=== PATIENT | male | born 1970 | race Hispanic/Latino ===

== ENCOUNTER → 2019-01-13 | Outpatient (CLI) | payer OTHER ==
--- NOTE | 2019-01-13 15:25 | Diagnostic Imaging Report ---
Exam: Sacrococcyx 2 views History: Pain Comparison: None. Findings: Age-indeterminate posterior displacement of the inferior portion of the coccyx. Otherwise unremarkable. Lower lumbar disc spaces maintained. Lower lumbar facet arthrosis. Impression: Age-indeterminate posterior displacement of the inferior portion of the coccyx Signed by: Dr. Mazin Olson M.D. on 01/13/2019 3:22 PM
== END ==
LOC: RAD 14:19
PROVIDERS: ATTEND Internal Medicine
DX: S33 Dislocation and sprain of joints and ligaments of lumbar spine and pelvis (principal); S32.050G Wedge compression fracture of fifth lumbar vertebra, subsequent encounter for fracture with delayed healing; I20.9 Angina pectoris, unspecified
CPT/HCPCS: 72220

== ENCOUNTER 2020-05-31 13:25 | Emergency (ER) | payer OTHER ==
[~2020-05-31] VITALS: Ht 172.7 cm; Wt 86.2 kg
[2020-05-31] MEDS ORDERED: IBUPROFEN 400 MG TAB PO ONE (14:15)
--- OUTSIDE RECORDS SUMMARY | 2020-05-31 14:29 | XMS REPORT | Clinical Summary ---
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 Last Filed Vital Signs Not on file Plan of Treatment Health Maintenance Due Date Last Done Comments INFLUENZA VACCINE 07/04/2020 Results Not on fileafter 05/31/2019 Insurance Type Payer Benefit Subscriber ID Effective Phone Address Plan / Dates Group Workers Comp WORKERS COMP MISC xxxxxxx 2017- WORKER'S Present COMP Guarantor Name Account Relation to Date of Phone Hugoin g Address Type Patient [id number] Workers Employer 1970 [address] (Home) [place] [address] Waldo Hernandez Personal/F Self 1970 [address] ([place]) [place] [address] Advance Directives For more information, please contact: [phone] 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
--- OUTSIDE RECORDS SUMMARY | 2020-05-31 14:29 | XMS REPORT | Continuity of Care Document ---
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 Attphys Unavailable JUAN DANIEL HARP M.D. Attphys Unavailable Payers Payer Name Policy Type Policy Number Effective Date Expiration Date S ource Problems Condition Name Condition Details Condition Category Status Onset Date Resolution Date Last Treatment Date Treating Clinician Comments Source History of arthritis History of arthritis Problem HL7.CCDAR2 Resolved [facility] Deviated nasal septum Deviated nasal septum Problem HL7.CCDAR2 Active [facility] External nose deformity External nose deformity Problem HL7.CCDAR2 Activ e [facility] Nasal valve stenosis Nasal valve stenosis Problem HL7.CCDAR2 Active [facility] Closed fracture of nasal bone, initial encounter Close d fracture of nasal bone, initial encounter Problem HL7.CCDAR2 Active [facility] Allergies, Adverse Reactions, Alerts Allergy Name Allergy Type Status Severity Reaction(s) Onset Date Inacti ve Date Treating Clinician Comments Source No Known Allergies DA Active U 2017-06-22 00:00:00 [facility] Family History Family Member Diagnosis Comments Start Date Stop Date Source Unknown Family Member Family history of malignant neoplasm Family His laura [facility] Natural father Cancer [facility] Natural mother Diabetes [facility] Social History Social Habit Start Date Stop Date Quantity Comments Source Sex Assigned At Adele ston Judaism Smoking Status Start Date Stop Date Source Never smoker [facility] Medications This patient has no known medications. Vital Signs Vital Name Observation Time Observation Value Comments Source BP Systolic 2018-05-09 09:48:00 123 mm[Hg] Location: RUE; Positi on: Sitting [facility] BP Diastolic 2018-05-09 09:48:00 76 mm[Hg] Location: RUE; Positi on: Sitting [facility] Height 2018-05-09 09:48:00 69 [in_us] [facility] Weight 2018-05-09 09:48:00 185 [lb_av] [facility] Body Mass Index Calculated 2018-05-09 09:48:00 27.32 kg/m2 [facility] Temperature 2018-05-09 09:48:00 97 [degF] Method: Oral [facility] Heart Rate 2018-05-09 09:48:00 73 /min Quality: Normal Unive [facility] BP Systolic 2018-02-03 10:08:00 139 mm[Hg] Location: LUE; Positi on: Sitting [facility] BP Diastolic 2018-02-03 10:08:00 78 mm[Hg] Location: LUE; Positi on: Sitting [facility] Height 2018-02-03 10:08:00 69 [in_us] [facility] Weight 2018-02-03 10:08:00 185 [lb_av] [facility] Body Mass Index Calculated 2018-02-03 10:08:00 27.32 kg/m2 [facility] Temperature 2018-02-03 10:08:00 97.3 [degF] Method: Oral [facility] Heart Rate 2018-02-03 10:08:00 83 /min Quality: Normal Unive [facility] BP Systolic 2017-11-04 09:31:00 123 mm[Hg] Location: LUE; Positi on: Sitting [facility] BP Diastolic 2017-11-04 09:31:00 73 mm[Hg] Location: LUE; Positi on: Sitting [facility] Height 2017-11-04 09:31:00 69 [in_us] [facility] Weight 2017-11-04 09:31:00 185 [lb_av] [facility] Body Mass Index Calculated 2017-11-04 09:31:00 27.32 kg/m2 [facility] Heart Rate 2017-11-04 09:31:00 89 /min [facility] BP Systolic 2017-09-20 13:10:00 150 mm[Hg] Location: RUE; Positi on: Sitting [facility] BP Diastolic 2017-09-20 13:10:00 97 mm[Hg] Location: RUE; Positi on: Sitting [facility] Height 2017-09-20 13:10:00 69 [in_us] [facility] Weight 2017-09-20 13:10:00 192 [facility]lb_av[facility] Body Mass Index Calculated 2017-09-20 13:10:00 28.35 kg/m2 [facility] Heart Rate 2017-09-20 13:10:00 72 /min [facility] BP Systolic 2017-08-24 14:40:00 119 mm[Hg] [facility] BP Diastolic 2017-08-24 14:40:00 84 mm[Hg] [facility] Height 2017-08-24 14:40:00 69 [in_us] [facility] Weight 2017-08-24 14:40:00 192.375 [lb_av] [facility] Body Mass Index Calculated 2017-08-24 14:40:00 28.41 kg/m2 [facility] Heart Rate 2017-08-24 14:40:00 98 /min [facility] Procedures Procedure Date / Time Performed Performing Clinician [facility] Planned Activity Planned Date Details Comments Source Future Scheduled Test 2020-07-04 00:00:00 INFLUENZA VACCINE [code = INFLUENZA VACCINE] [facility] Encounters Start Date/Time End Date/Time Encounter Type Admission Type [facility] Facility Care Department Encounter ID Source 2018-05-09 10:00:00 2018-05-09 10:00:00 Appointment; KAYLEY NAVARRETE M.D. HO, TANG, M.D. [facility] Otorhinolaryngology [facility] [id number] [facility] 2018-02-03 09:45:00 2018-02-03 09:45:00 Appointment; KAYLEY NAVARRETE M.D. HO, TANG, M.D. [facility] Otorhinolaryngology [facility] [id number] [facility] 2017-11-04 10:30:00 2017-11-04 10:30:00 Appointment; KAYLEY NAVARRETE M.D. HO, TANG, M.D. [facility] Otorhinolaryngology [facility] [id number] [facility] 2017-09-20 13:15:00 2017-09-20 13:15:00 Appointment; KAYLEY NAVARRETE M.D. HO, TANG, M.D. [facility] Otorhinolaryngology [facility] [id number] [facility] 2017-08-24 14:15:00 2017-08-24 14:15:00 Appointment; JUAN DANIEL HARP M.D. BYRD, MICHAEL, M.D. [facility] [id number] [facility] Results Test Description Test Time Test Comments Results Result Comments Source [facility] 2019-01-13 15:21:00 [place] [address] Patient Name: JENNIFER PATEL MR #: [id number] : 1970 Age/Sex: 48/M Req #: [id number] Adm Physician: Ordered by: VIDAL PAUL MD Report #: [id number] Location: [facility] Room/Bed: Procedure: [id number] DX/[facility] Exam Date: 01/13/19 Exam Time: 1430 REPORT STATUS: Signed Exam: Sacrococcyx 2 views History: Pain Comparison: None. Findings: Age-indeterminate posterior displacement of the inferior portion of the coccyx. Otherwise unremarkable. Lower lumbar disc spaces maintained. Lower lumbar facet arthrosis. Impression: Age-indeterminate posterior displacement of the inferior portion of the coccyx Signed by: Dr. Alla Christianson M.D. on 01/13/2019 3:22 PM Dictated By: ALLA CHRISTIANSON MD 1522 Transcribed By: ANGELA on 01/13/19 1522 COPY TO: VIDAL PAUL MD
--- NOTE | 2020-05-31 17:07 | Emergency Department Note ---
History of Present Illnes History of Present Illness Chief Complaint: Chest Pain History of Present Illness This is a 49 year old male with right lower anterior shoulder pain sinc e yesterday afternoon. Noticed during BBQ. Right handed. Worse with adduction and abduction of right shoulder and with deep breaths. No N/V, diaphoresis, SOB. No family Hx of [place] or CAD. No DM, HTN, or > cholesterol. No smoking other than 3 cigars a year. No drug use. Denies heavy lifting. No similar symptom in past. Improved since yesterday. Has not taken anything OTC for symptoms. Automation Qa Lead Required: No Onset (how long ago): day(s) Severity: mild Duration (how long): day(s) Progression: improving Chronicity: new Context: Denies recent illness, Denies recent surgery, Denies recent immobilization, Denies recent travel, Denies trauma/injury Associated symptoms: Denies confusion, Denies cough, Denies diaphoresis, Denies fever/chills, Denies headaches, Denies malaise, Denies nausea/vomiting, Denies shortness of breath, Denies syncope, Denies weakness Treatments prior to arrival: none Past Medical/Family History Physician Review I have reviewed the patient's past medical and family history. Any updates have been documented here. Past Medical History Other Medical History: Chronic back pain. Other Surgery: knee, nasal Social History Alcohol Use: Occasional Any Illegal Drug Use: No Review of Systems Review of Systems Constitutional: Reports no symptoms EENTM: Reports no symptoms Cardiovascular: Reports chest pain (upper right chest / lower anterior shoulder); Denies no symptoms, Denies as per HPI, Denies edema, Denies palpitations, Denies syncope, Denies other Gastrointestinal: Reports no symptoms Genitourinary: Reports no symptoms Musculoskeletal: Reports no symptoms Integumentary: Denies rash Neurological: Reports no symptoms Psychological: Reports no symptoms Endocrine: Reports no symptoms Physical Exam Related Data Allergies: Coded Allergies: No Known Allergies (Unverified , 05/31/20) Physical Exam CONSTITUTIONAL Constitutional: Present well-developed, Present well-nourished HENT HENT: Present normocephalic, Present atraumatic, Present oropharynx clear/moist, Present nose normal HENT L/R: Present left ext ear normal, Present right ext ear normal EYES NECK Neck: Present ROM normal PULMONARY Pulmonary: Present effort normal, Present breath sounds normal CARDIOVASCULAR Cardiovascular: Present regular rhythm, Present heart sounds normal, Present capillary refill normal, Present normal rate, Present other (pain reproduced with palpation.) GASTROINTESTINAL Abdominal: Present soft, Present nontender, Present bowel sounds normal GENITOURINARY SKIN Skin: Present warm, Present dry MUSCULOSKELETAL Musculoskeletal: Present ROM normal, Present other (pain reproduced with adduciton and abduciton of right shoulder especially against resistance.) NEUROLOGICAL Neurological: Present alert, Present oriented x 3, Present no gross motor or sensory deficits PSYCHOLOGICAL Psychological: Present mood/affect normal, Present judgement normal Procedures 12 Lead ECG Interpretation ECG Interpretation : ECG: ECG 1 Prior ECG tracings: reviewed Rhythm: sinus rhythm Rate: normal BPM: 70 QRS axis: normal ST segments normal: Yes T waves normal: Yes Clinical Impression: normal ECG Clinical Decision Tools HEART Score HEART Score: HEART Score Response (Comments) Value History Slightly suspicious 0 EKG Normal 0 Age 45 - 65 1 Risk factors no risk factors 0 Troponin < or = to normal limit Total 1 Assessment & Plan Medical Decision Making MDM Differential dx includes, but is not limited to [place], ACS, dissection, PE, chest wall pain. EKG normal. HEART score 1. Symptoms worse with adduction and abduction of shoulder especially against resistance. Given hx and PE indicated this is not cardiac related with normal EKG and no risk factors will treat for chest wall pain. Gave strict return precautions and patient to have prompt follow-up. Assessment & Plan Final Impression: (1) Chest wall pain Depart Disposition: HOME, SELF-CARE CASPER CORDOVA MD May 31, 2020 14:09
== END 2020-05-31 14:54 | disposition home or self-care (01) ==
LOC: FSED 14:08
DX: R07.89 Other chest pain (principal); M25.511 Pain in right shoulder
CPT/HCPCS: 93005; 99282

== ENCOUNTER 2020-10-03 14:51 | Emergency (ER) | payer OTHER ==
[~2020-10-03] VITALS: Ht 172.7 cm; Wt 88.0 kg
[2020-10-03] MEDS ORDERED: PREDNISONE20 MG PO (17:45)
== END 2020-10-03 18:03 | disposition home or self-care (01) ==
LOC: FSED 14:59
DX: M79.641 Pain in right hand (principal); M54.9 Dorsalgia, unspecified; G89.29 Other chronic pain; F17.210 Nicotine dependence, cigarettes, uncomplicated
CPT/HCPCS: 99282

== ENCOUNTER 2022-11-04 06:42 | Emergency (ER) | payer OTHER ==
[~2022-11-04] VITALS: Ht 172.7 cm; Wt 88.0 kg
[~2022-11-04 06:42] MED LIST: PREDNISONE20 MG PO
[2022-11-04] MEDS ORDERED: IBUPROFEN 400 MG TAB PO ONE (07:30)
[2022-11-04] MEDS ORDERED: MELOXICAM7.5 MG PO (08:09)
== END 2022-11-04 08:30 | disposition home or self-care (01) ==
LOC: FSED 07:23
DX: S83.8X2A Sprain of other specified parts of left knee, initial encounter (principal); W18.39XA Other fall on same level, initial encounter; Y93.01 Activity, walking, marching and hiking; Y92.89 Other specified places as the place of occurrence of the external cause; M54.9 Dorsalgia, unspecified; G89.29 Other chronic pain; F17.210 Nicotine dependence, cigarettes, uncomplicated
CPT/HCPCS: 99283

== ENCOUNTER 2024-12-31 16:08 | Emergency (ER) | payer OTHER ==
[~2024-12-31] VITALS: Ht 170.2 cm; Wt 90.3 kg
[~2024-12-31 16:08] MED LIST changes: +MELOXICAM7.5 MG PO; +PREDNISONE50 MG PO; +ULTRAM 50MG50 MG PO
[2024-12-31] MEDS: KETOROLAC TROMETHAMINE 30 MG/ML VIAL IM STA (17:08)
[2024-12-31] MEDS: PREDNISONE 20 MG TAB PO ONE (17:08)
[2024-12-31] MEDS ORDERED: CELEBREX100 MG PO (17:29)
[2024-12-31 17:39] VITALS: PULSE 69; RESP 16; TEMP 98; O2SAT 97
== END 2024-12-31 17:39 | disposition home or self-care (01) ==
LOC: FSED 16:12
DX: M25.512 Pain in left shoulder (principal); M19.012 Primary osteoarthritis, left shoulder; M54.9 Dorsalgia, unspecified; G89.29 Other chronic pain
CPT/HCPCS: 73030; 96372; 99283; J1885; J7512